=== PATIENT | male | born 1970 | race Caucasian/White ===

== ENCOUNTER 2017-01-23 20:17 | Inpatient (IN) | payer OTHER, MEDICAID ==
[~2017-01-23] VITALS: Ht 170.2 cm; Wt 74.8 kg
[2017-01-23 20:50] LABS: BASOPHIL % 0.9 % (0-2); PLATELET COUNT 393 x10^3mcL (130-400)
[2017-01-23 21:00] LABS: CALCIUM 8.7 mg/dL (8.5-10.1); CARBON DIOXIDE 32.1 mmol/L (21-32); CHLORIDE SERUM 106 mmol/L (98-107); CREATININE SERUM 0.9 mg/dL (0.7-1.3); GFR1 > 60 mL/min; GLUCOSE SERUM 101 mg/dL (74-106); POTASSIUM SERUM 4.3 mmol/L (3.5-5.1); SODIUM SERUM 142 mmol/L (136-145)
[2017-01-23 21:04] LABS: ALBUMIN 2.7 g/dL (3.4-5.0); ALKALINE PHOSPHATASE 133 U/L (46-116); ALT/SGPT 12 U/L (16-63); AST/SGOT 8 U/L (15-37); BILIRUBIN TOTAL 0.2 mg/dL (0.20-1.00)
[2017-01-23] MEDS ORDERED: ZESTRIL5 MG PO ×2 (22:57→23:46)
[2017-01-23] MEDS ORDERED: ATENOLOL25 MG PO (22:58)
[2017-01-23] MEDS ORDERED: ABILIFY5 M1 PO (22:59)
[2017-01-23] MEDS ORDERED: BENADRYL ALLERG25 M1 PO (22:59)
[2017-01-23] MEDS ORDERED: DEPAKOTE500 MG PO (22:59)
[2017-01-23 23:41] LABS: RED BLOOD CELLS 3.64 M/mm3 (4.52-5.90)
[2017-01-23 23:51] LABS: CHOLESTEROL/HDL RATIO 3.1
[2017-01-23 23:57] LABS: FREE T4 0.81 ng/dL (0.76-1.46); FREE THYROXINE INDEX 2.1 ug/dL (1.4-4.5); T4(THYROXINE) 5.7 ug/dL (4.7-13.3)
[2017-01-24 00:26] LABS: T3 TOTAL 0.88 ng/mL
[2017-01-24 00:33] VITALS: BP 140/58
[2017-01-24] MEDS ORDERED: AMITRIPTYLINE100 MG PO (00:59)
[2017-01-24 04:55] LABS: TOTAL IRON BINDING CAPACITY 378 ug/dL (250-450)
[2017-01-24 04:56] LABS: IRON 21 ug/dL (65-170)
[2017-01-24 05:22] VITALS: BP 141/81
[2017-01-24 09:14] VITALS: BP 142/85
[2017-01-24 11:29] LABS: microscopic required? NO
[2017-01-24 11:45] LABS: urine erythrocyte NEGATIVE (NEGATIVE)
[2017-01-24 11:55] LABS: AMPHETAMINE QUAL UR NONE DETECTED (NEG <=1000)
[2017-01-24 12:49] LABS: BASOPHIL % 0.3 % (0-2); PLATELET COUNT 388 x10^3mcL (130-400)
[2017-01-24 12:51] LABS: RED CELL DISTRIBUTION WIDTH 16.8 % (11.5-14.5); rbc morphology (normal/abnorm) ABNORMAL (NORMAL)
[2017-01-24 12:54] LABS: CALCIUM 9.1 mg/dL (8.5-10.1); CARBON DIOXIDE 27.7 mmol/L (21-32); CHLORIDE SERUM 104 mmol/L (98-107); CREATININE SERUM 0.7 mg/dL (0.7-1.3); GFR1 > 60 mL/min; GLUCOSE SERUM 110 mg/dL (74-106); MAGNESIUM 1.7 mg/dL (1.8-2.4); PHOSPHOROUS 4.2 mg/dL (2.5-4.9); POTASSIUM SERUM 4.2 mmol/L (3.5-5.1); SODIUM SERUM 139 mmol/L (136-145)
[2017-01-24 14:00] VITALS: BP 116/76
[2017-01-24 16:25] VITALS: BP 114/69
[2017-01-24 21:39] VITALS: BP 116/65
[2017-01-25 05:21] VITALS: BP 129/69
[2017-01-25 06:35] LABS: CARBON DIOXIDE 28.6 mmol/L (21-32); CHLORIDE SERUM 104 mmol/L (98-107); CREATININE SERUM 0.8 mg/dL (0.7-1.3); GFR1 > 60 mL/min; GLUCOSE SERUM 83 mg/dL (74-106); MAGNESIUM 1.8 mg/dL (1.8-2.4); PHOSPHOROUS 3.8 mg/dL (2.5-4.9); POTASSIUM SERUM 4.6 mmol/L (3.5-5.1); SODIUM SERUM 138 mmol/L (136-145)
[2017-01-25 07:02] LABS: BASOPHIL % 0.5 % (0-2); PLATELET COUNT 343 x10^3mcL (130-400)
[2017-01-25 07:06] LABS: RED CELL DISTRIBUTION WIDTH 16.8 % (11.5-14.5)
[2017-01-25 09:33] VITALS: BP 128/72
[2017-01-25 13:28] VITALS: BP 120/70
[2017-01-25] MEDS ORDERED: DEPAKOTE500 MG PO (16:51)
[2017-01-25] MEDS ORDERED: ATENOLOL25 MG PO (16:51)
[2017-01-25] MEDS ORDERED: ABILIFY5 M1 PO (16:53)
[2017-01-25] MEDS ORDERED: AMITRIPTYLINE100 MG PO (16:53)
[2017-01-25] MEDS ORDERED: FER300 PO (16:54)
[2017-01-25] MEDS ORDERED: ZES5 PO (16:54)
[2017-01-25] MEDS ORDERED: APAP/HYDROCODON1 T13 PO (16:55)
[2017-01-25] MEDS ORDERED: TRAZODONE100 MG PO (16:56)
[2017-01-25] MEDS ORDERED: COL100 PO (16:56)
[2017-01-25] MEDS ORDERED: LAC PO (16:57)
[2017-01-25] MEDS ORDERED: VITC PO (17:02)
[2017-01-25] MEDS ORDERED: LEVAQUIN750 MG PO (17:03)
[2017-01-25 17:40] VITALS: BP 109/54; BP 120/70
== END 2017-01-25 18:45 | disposition home or self-care (01) | DRG 862 ==
LOC: EDSEX 20:17 → ED 20:17 → DU 22:26
PROVIDERS: Emergency Medicine; ADMIT Family Medicine
DX: T81.4XXA Infection following a procedure, initial encounter (principal); E43 Unspecified severe protein-calorie malnutrition; L03.115 Cellulitis of right lower limb; I10 Essential (primary) hypertension; F31.9 Bipolar disorder, unspecified; D50.9 Iron deficiency anemia, unspecified; F17.290 Nicotine dependence, other tobacco product, uncomplicated; Z91.19 Patient's noncompliance with other medical treatment and regimen; Z59.0 Homelessness; Z68.29 Body mass index [BMI] 29.0-29.9, adult; Y83.4 Other reconstructive surgery as the cause of abnormal reaction of the patient, or of later complication, without mention of misadventure at the time of the procedure; Y92.009 Unspecified place in unspecified non-institutional (private) residence as the place of occurrence of the external cause
CPT/HCPCS: 80307; 83880; 84439; J1644; J1956; J2270; J7030; Q0092

== ENCOUNTER 2017-05-04 18:10 | Emergency (ER) | payer OTHER ==
[~2017-05-04] VITALS: Ht 170.2 cm; Wt 83.9 kg
[~2017-05-04 18:10] MED LIST: ABILIFY5 M1 PO; AMITRIPTYLINE100 MG PO; APAP/HYDROCODON1 T13 PO; ATENOLOL25 MG PO; BENADRYL ALLERG25 M1 PO; COL100 PO; DEPAKOTE500 MG PO; FER300 PO; LAC PO; LEVAQUIN750 MG PO; TRAZODONE100 MG PO; VITC PO; ZES5 PO; ZESTRIL5 MG PO
[2017-05-04 18:27] VITALS: BP 134/95
== END 2017-05-04 20:35 | disposition home or self-care (01) ==
LOC: ED 18:10
DX: M25.571 Pain in right ankle and joints of right foot (principal); I10 Essential (primary) hypertension; R22.41 Localized swelling, mass and lump, right lower limb; Z87.898 Personal history of other specified conditions; Z79.899 Other long term (current) drug therapy

== ENCOUNTER 2019-04-07 19:01 | Emergency (ER) | payer SELFPAY ==
[~2019-04-07] VITALS: Ht 172.7 cm; Wt 81.6 kg
[2019-04-07 19:07] VITALS: Ht 172.7 cm; Wt 81.6 kg
[2019-04-07 19:38] LABS: BASOPHIL % 0.5 % (0-2); PLATELET COUNT 338 x10^3mcL (130-400); RED CELL DISTRIBUTION WIDTH 14.2 % (11.5-14.5)
[2019-04-07 19:55] LABS: CALCIUM 8.7 mg/dL (8.5-10.1); CARBON DIOXIDE 28.7 mmol/L (21-32); CHLORIDE SERUM 110 mmol/L (98-107); CREATININE SERUM 0.8 mg/dL (0.7-1.3); GFR1 > 60 mL/min; GLUCOSE SERUM 119 mg/dL (74-106); POTASSIUM SERUM 3.7 mmol/L (3.5-5.1); SODIUM SERUM 146 mmol/L (136-145)
[2019-04-07 20:02] LABS: ALKALINE PHOSPHATASE 101 U/L (46-116); ALT/SGPT 24 U/L (16-63); AST/SGOT 16 U/L (15-37); BILIRUBIN TOTAL 0.6 mg/dL (0.20-1.00); T4(THYROXINE) 7.4 ug/dL (4.7-13.3); TOTAL PROTEIN, SERUM 6.3 g/dL (6.4-8.2)
[2019-04-07 20:03] LABS: ALBUMIN 3.1 g/dL (3.4-5.0)
[2019-04-08 02:17] LABS: AMPHETAMINE QUAL UR NONE DETECTED (See below)
[2019-04-08 06:21] VITALS: BP 127/72
== END 2019-04-08 06:21 | disposition home or self-care (01) ==
LOC: ED 19:01
PROVIDERS: Emergency Medicine
DX: F30.9 Manic episode, unspecified (principal); R41.82 Altered mental status, unspecified; I10 Essential (primary) hypertension; E78.00 Pure hypercholesterolemia, unspecified
CPT/HCPCS: 36415; G0480; J1630; J2060